=== PATIENT | male | born 1970 | race African-American/Black ===

== ENCOUNTER 2023-09-27 13:41 | Emergency (ER) | payer MEDICAID ==
[~2023-09-27] VITALS: Ht 182.9 cm; Wt 104.3 kg
[2023-09-27 13:47] VITALS: BP 151/64; TEMP 98.7; O2SAT 100
[2023-09-27] MEDS ORDERED: AMOX500C2 PO (14:43)
[2023-09-27] MEDS ORDERED: NAPROXEN 250 MG TABLET ONE (14:43)
[2023-09-27] MEDS: NAPROXEN 250 MG TABLET PO ONE (14:48)
== END 2023-09-27 14:49 | disposition home or self-care (01) ==
LOC: ER 13:41
DX: J02.9 Acute pharyngitis, unspecified (principal); Z60.2 Problems related to living alone
CPT/HCPCS: 86403-TC